=== PATIENT | male | born 1960 | race Two or more races ===

== ENCOUNTER 2019-02-22 07:27 | Day surgery (SDC) | payer MEDICAID ==
[~2019-02-22] VITALS: Ht 170.2 cm; Wt 81.6 kg
[~2019-02-22 07:27] MED LIST: ATOR10TA52 PO; CHOL200021 PO; HYDR-531 PO; IBUP800T24 PO; LISI10TA6 PO; [UNRECOGNIZED DRUG - CODE] TD
[2019-02-22] MEDS ORDERED: fentaNYL CITRATE 100 MCG/2 ML VL ONE (08:11)
[2019-02-22] MEDS ORDERED: MIDAZOLAM HCL 1MG/1ML-2 ML VIAL ONE (08:11)
[2019-02-22] MEDS ORDERED: fentaNYL CITRATE 5 ML ONE ×2 (08:12→09:02)
[2019-02-22] MEDS ORDERED: ONDANSETRON HCL 4 MG/2 ML VIAL ONE (08:12)
[2019-02-22] MEDS ORDERED: ROCURONIUM 10MG/ML 10ML VIAL IV ONE (08:12)
[2019-02-22] MEDS ORDERED: MEPERIDINE HCL (25 MG/ML) 1ML VIAL ONE (08:12)
[2019-02-22] MEDS ORDERED: PROPOFOL 10 MG/ML 20 ML IV ONE (08:12)
[2019-02-22] MEDS ORDERED: ceFAZolin 1GM VL IV ONE (08:30)
[2019-02-22] MEDS ORDERED: LIDOCAINE 2% (LOCAL ANESTH.) PF 5ml SDV ONE (08:30)
[2019-02-22] MEDS ORDERED: LIDOCAINE HCL 2% TOP JELLY 5ML TOP ONE (08:30)
[2019-02-22] MEDS ORDERED: ceFAZolin 1GM/50ML 100 ML IV ONE (09:25)
[2019-02-22] MEDS ORDERED: ROPIVACAINE 0.5% (5MG/ML) 20ML AMPULE IJ ONE (10:26)
[2019-02-22] MEDS ORDERED: KETOROLAC TROMETH 30 MG/ML 1ML VIAL IV ONE (11:45)
[2019-02-22] MEDS ORDERED: NITROGLYCERIN 5MG/ML 10ML VIAL IV ONE (11:45)
[2019-02-22] MEDS ORDERED: METOCLOPRAMIDE HCL 5MG/ml INJ 2ml VIAL IV PRN (11:45)
[2019-02-22] MEDS ORDERED: HYDROmorphone HCL 2 MG/ML VL IV PRN (11:45)
[2019-02-22] MEDS ORDERED: fentaNYL CITRATE 100 MCG/2 ML VL IV PRN (11:45)
[2019-02-22] MEDS ORDERED: ACETAMINOPHEN IV 1000 MG/100ML (10MG/ML) IV ONE (13:00)
[2019-02-22 13:39] VITALS: BP 137/77
== END 2019-02-22 13:42 | disposition home or self-care (01) ==
LOC: SUR 07:27
PROVIDERS: ATTEND Orthopaedic Surgery
DX: M75.102 Unspecified rotator cuff tear or rupture of left shoulder, not specified as traumatic (principal); M75.22 Bicipital tendinitis, left shoulder; M25.812 Other specified joint disorders, left shoulder; Z98.890 Other specified postprocedural states; Z88.8 Allergy status to other drugs, medicaments and biological substances; Z79.899 Other long term (current) drug therapy; E66.8 Other obesity; Z68.29 Body mass index [BMI] 29.0-29.9, adult; F17.210 Nicotine dependence, cigarettes, uncomplicated; I10 Essential (primary) hypertension; E78.5 Hyperlipidemia, unspecified; G89.29 Other chronic pain; F10.10 Alcohol abuse, uncomplicated
CPT/HCPCS: 29824; 29826; 29827; 29828; J0690; J1170; J2001; J2175; J2250; J2405; J2704; J2795; J3010; J3490; A4565